=== PATIENT | male | born 1965 | race Caucasian/White ===

== ENCOUNTER 2018-11-28 17:12 | Emergency (ER) | payer BC ==
[~2018-11-28] VITALS: Ht 188 cm; Wt 95.3 kg
--- NOTE | 2018-11-28 17:24 | NUR ---
PT IS IN ROOM #2B WAITING FOR ER MD EVALUATION.
[2018-11-28] MEDS ORDERED: QUET25TA3 PO (17:53)
[2018-11-28] MEDS ORDERED: LISINOPRIL PO (17:53)
[2018-11-28] MEDS ORDERED: HCTZ PO (17:53)
--- NOTE | 2018-11-28 17:53 | NUR ---
MEDICATION INFORMATION OBTAINED FROM PATIENT, BUT IS UNABLE TO REMEMBER DOSAGES,
--- NOTE | 2018-11-28 18:08 | NUR ---
PT STATED HE NEEDS TO TAKE HIS CELL PHONE FROM HIS CAR. PT WENT OTSIDE AND ELOPED AT 1800. DR HAINES NOTIFIED. [employer] GRACE NOTIFIED.
== END 2018-11-28 18:16 | disposition left against medical advice (07) ==
LOC: ER 17:12
DX: Z53.21 Procedure and treatment not carried out due to patient leaving prior to being seen by health care provider (principal)
CPT/HCPCS: 36415; A4663